=== PATIENT | male | born 1970 | race Caucasian/White ===

== ENCOUNTER 2017-03-19 09:18 | Emergency (ER) | payer OTHER ==
[~2017-03-19] VITALS: Ht 170.2 cm; Wt 72.4 kg
[2017-03-19 09:38] VITALS: TEMP 36.8; Ht 170.2 cm; Wt 72.4 kg
[2017-03-19] MEDS ORDERED: TRVHP PO (09:50)
[2017-03-19] MEDS ORDERED: GELATIN SPONGE 12-7MM EXT ONE (10:00)
--- NOTE | 2017-03-19 10:07 | EMERGENCY ROOM VISIT NOTE ---
ED Visit Note First contact with patient: 09:41 CHIEF COMPLAINT: Left index finger laceration HISTORY OF PRESENT ILLNESS: This 46-year-old male presents the ER with chief complaint of a laceration to his left index finger. The patient states that he was in a hurry and reached in a bag and cut the tip of his left index finger on a razor blade. The patient cannot the bleeding to stop. The patient's tetanus is up-to-date. The patient is right-hand dominant. REVIEW OF SYSTEMS: 6 system review was performed and was negative unless stated otherwise in history of present illness. PMH: The patient is healthy; there is no significant medical or surgical history. SOCIAL HISTORY: Patient lives at home. Non-smoker, occasional alcohol use. PHYSICAL EXAM: Vital Signs: Were reviewed Reviewed Nurse's notes. GENERAL: 38- year-old white male appears in no acute distress. MENTAL Status: Alert and oriented 3. The patient is very anxious. LEFT INDEX FINGER: Superficial skin avulsion noted on the stool palmar aspect of the distal phalanx. There is active bleeding. The wound looks clean. No deep structures are visualized. EMERGENCY DEPARTMENT COURSE: The patient was evaluated. Gelfoam and a compression bandage was applied. The patient was discharged home in stable condition. DIAGNOSIS: Skin avulsion left index finger DISCHARGE INSTRUCTIONS & TREATMENT: If you bleed through the current bandage, remove the outer bandage and then soak the small sponge area in water to remove. Then apply the other foam and apply gauze bandage . Otherwise keep the entire bandage on for 24 hours. Remove bandage as directed above. If any uncontrolled bleeding occurs, return to ER. Current/Historical Medications Scheduled Emtricitabine/Temofovir (Truvada 200/300MG), 1 TAB PO QPM Allergies Coded Allergies: No Known Allergies (Unverified , 03/19/17) Vital Signs Date Time Temp Pulse Resp B/P (MAP) Pulse Ox O2 Delivery O2 Flow Rate FiO2 03/19/17 09:38 36.8 75 18 130/84 97 Room Air Departure Information Impression Primary Impression: Avulsion of skin of finger Dispostion Home / Self-Care Condition GOOD Forms HOME CARE DOCUMENTATION FORM, IMPORTANT VISIT INFORMATION Patient Instructions My [facility] Additional Instructions If you bleed through the current bandage, remove the outer bandage and then soak the small sponge area in water to remove. Then apply the other foam and apply gauze bandage . Otherwise keep the entire bandage on for 24 hours. Remove bandage as directed above. If any uncontrolled bleeding occurs, return to ER.
[2017-03-19 10:12] VITALS: BP 128/78; PULSE 69; O2SAT 99
== END 2017-03-19 10:12 | disposition home or self-care (01) ==
LOC: C.EDB 09:19
DX: S61.211A Laceration without foreign body of left index finger without damage to nail, initial encounter (principal); W26.8XXA Contact with other sharp object(s), not elsewhere classified, initial encounter